=== PATIENT | male | born 1950 | race Caucasian/White ===

== ENCOUNTER 2018-02-05 07:20 | Emergency (ER) | payer BC ==
[2018-02-05] MEDS ORDERED: DIPHENHYDRAMINE HCL 50 MG/ML VIAL IVP ONE (07:35)
--- NOTE | 2018-02-05 07:41 | Emergency Department Record ---
History of Present Illness - General Chief Complaint: Dizziness Stated Complaint: DIZZY/NAUSEA Time Seen by Provider: 02/05/18 07:34 Source: Patient, Family () Mode of Arrival: Ambulatory Limitations: No limitations - History of Present Illness Initial Comments: Pt with complaint of dizziness with turning head or looking down. Associated with nausea. Better is holds head still. No CP, JULIO CÉSAR, no weakness to arms or legs, no change in speech or vision. No recent change in meds, no recent illness or OTC meds. When up at night to go to the bathroom he had difficulty with dizziness. Had simialr last week that resolved overnight without treatment. No TRONCOSO or other complaints. No prior medical evaluation for this issue. MD Complaint: Dizziness Onset/Timin -: Days(s) Description: Off-balance, "Room spinning", Sense of movement History of Same: Yes History of Trauma: No - Mikhail Coma Scale Eye Response: (4) Open spontaneously Motor Response: (6) Obeys commands Verbal Response: (5) Oriented Mikhail Total: 15 - Related Data Previous Rx's Medication Instructions Recorded Meclizine HCl [Antivert] 25 mg PO Q8H 5 Days #30 tablet 02/05/18 Allergies Allergy/AdvReac Type Severity Reaction Status Date / Time No Known Drug Allergies Allergy Verified 02/05/18 07:28 Travel Screening - Travel/Exposure Within Last 30 Days Have you traveled within the last 30 days?: No - Travel/Exposure Within Last Year Have you traveled outside the [place] in the last year?: No - Additonal Travel Details Have you been exposed to anyone with a communicable illness?: No - Travel Symptoms Symptom Screening: None Review of Systems Constitutional: Denies: Chills, Fever, Weakness Eyes: Denies: Eye discharge, Photophobia ENT: Denies: Congestion, Ear pain, Hearing loss Respiratory: Denies: Cough, Dyspnea Cardiovascular: Denies: Arrhythmia, Chest pain, Palpitations, Syncope Endocrine: Denies: Fatigue, Polydipsia, Polyuria Gastrointestinal: Reports: Nausea. Denies: Abdominal pain, Vomiting Musculoskeletal: Denies: Back pain Skin: Denies: Bruising, Rash Neurological: Reports: Vertigo. Denies: Abnormal gait, Confusion, Headache, Numbness, Tingling, Weakness Psychiatric: Denies: Anxiety, Suicidal thoughts Hematological/Lymphatic: Denies: Anemia Past Medical History - SOCIAL HISTORY Smoking Status: Never smoker Alcohol Use: None Drug Use: None - RESPIRATORY Hx Respiratory Disorders: No - CARDIOVASCULAR Hx Cardio Disorders: Yes Hx Hypertension: Yes Comment:: hypercholesteremia - NEURO Hx Neuro Disorders: No - GI Hx GI Disorders: No - Hx Genitourinary Disorders: No - ENDOCRINE Hx Endocrine Disorders: No - MUSCULOSKELETAL Hx Musculoskeletal Disorders: No - PSYCH Hx Psych Problems: No - HEMATOLOGY/ONCOLOGY Hx Hematology/Oncology Disorders: No Family Medical History Any Significant Family History?: Yes Hx Heart Disease: Grandparents Physical Exam - General General Appearance: Alert, Oriented x3, Cooperative, No acute distress - Head Head exam: Normal inspection - Eye Eye exam: Normal appearance, PERRL, EOMI. negative: Nystagmus - ENT ENT exam: Normal exam, Mucous membranes moist, Normal external ear exam, TM's normal bilaterally Nasal Exam: Normal inspection Teeth exam: Normal inspection Throat exam: Normal inspection - Neck Neck exam: Normal inspection, Full ROM. negative: Tenderness - Respiratory Respiratory exam: Normal lung sounds bilaterally. negative: Respiratory distress, Wheezes - Cardiovascular Cardiovascular Exam: Regular rate, Normal rhythm, Normal heart sounds. negative : Diastolic murmur, Systolic murmur, Tachycardia Peripheral Pulses: 2+: Radial (R), Radial (L) - GI/Abdominal GI/Abdominal exam: Soft, Normal bowel sounds. negative: Tenderness - Extremities Extremities exam: Normal inspection, Full ROM. negative: Calf tenderness - Back Back exam: Reports: Normal inspection. Denies: Vertebral tenderness - Neurological Neurological exam: Alert, CN II-XII intact, Normal gait, Oriented X3, Other ( Reproduce dizziness with lateral gaze, no nystagmus. Better is still. ). negative: Motor sensory deficit - Psychiatric Psychiatric exam: Normal affect, Normal mood - Skin Skin exam: Normal color. negative: Rash Course Vital Signs 02/05/18 07:21 Temperature 97.4 F L Pulse Rate 67 Respiratory 18 Rate Blood Pressure 140/97 - Reevaluation(s) Reevaluation #1: 02/05/18 07:46 Exam with at bedside. EKG normal. Reevaluation #2: 02/05/18 08:05 EKG, Labs, XRay normal. Monitoring for response to meds. Reevaluation #3: 02/05/18 08:55 Improved with less dizziness. Able to open eyes and look side to side. Still dizzy with looking down. Comfortable with home. Second episode of this and will refer to ENT. Procedures - EKG Initial Date: 02/05/18 Time: 07:25 EKG: Normal EKG Medical Decision Making - Data Complexity MDM Data: Labs Ordered and/or Reviewed, X-Ray Ordered and/or Reviewed, EKG Ordered and/or Reviewed - Lab Data Result diagrams: 02/05/18 07:28 02/05/18 07:28 - EKG Data -: EKG Interpreted by Me EKG: Normal EKG - Radiology Data Radiology results: Report reviewed -: Radiology Exam Interpreted by Myself No acute process Disposition Disposition: Discharge Clinical Impression: Dizziness, Benign positional vertigo Disposition: Home, Self-Care Condition: (1) Good Instructions: Vertigo (ED), Benign Paroxysmal Positional Vertigo (ED) Additional Instructions: DO not DRIVE UNTIL SYMPTOMS RESOLVE. Follow up with ENT referral. Take Antivert as instructed. Return as needed. Prescriptions: Meclizine HCl [Antivert] 25 mg PO Q8H 5 Days #30 tablet Referrals: [facility] [] - Forms: Patient Portal Access Time of Disposition: 08:58 Quality - Quality Measures Quality Measures: N/A - Blood Pressure Screening Does Patient Have Any of the Following: No Blood Pressure Classification: Hypertensive Reading Systolic Measurement: 140 Diastolic Measurement: 97 Screening for High Blood Pressure: Patient Exclusion, Hx of HTN [[id number]]
[2018-02-05 07:43] LABS: BASO % 0.5 % (0-6); EOS % 3.4 % (0-6); GRAN % 53.6 % (47-80); HEMATOCRIT 47.2 % (42.0-52.0); HEMOGLOBIN 16.3 gm/dl (14.0-18.0); LYMPH % 32.4 % (16-45); MEAN CELL VOLUME 85.4 fl (81-97); MEAN CORPUSCULAR HEMOGLOBIN 29.5 pg (27-33); MEAN CORPUSCULAR HGB CONC 34.5 g/dl (32-36); MEAN PLATELET VOLUME 9.8 fl (7.4-10.4); MONO % 10.1 % (0-9); PLATELET COUNT 188 K/uL (130-400); RED BLOOD COUNT 5.53 M/uL (4.40-5.70); RED CELL DISTRIBUTION WIDTH 12.7 % (11.5-14.5); WHITE BLOOD COUNT W/O DIFF 6.2 K/uL (4.2-12.2)
[2018-02-05] MEDS ORDERED: 0.9 % SODIUM CHLORIDE 1000ML 500 ML IV ONE (07:47)
[2018-02-05 07:56] LABS: BLOOD UREA NITROGEN 18 mg/dL (8-23); CREATININE 1.1 mg/dL (0.7-1.2); EST GLOMERULAR FILTRATION RATE > 60 mL/min
[2018-02-05 07:58] LABS: GLUCOSE,RANDOM 104 mg/dL (74-109)
--- NOTE | 2018-02-06 07:28 | RADIOLOGY REPORT ---
DATE: 02/05/2018. EXAM: CHEST, TWO VIEW. HISTORY: DIZZINESS. TECHNIQUE: Two views of the chest. COMPARISON: None. FINDINGS: The cardiomediastinal silhouette is unremarkable. The lungs and pleural spaces are clear. IMPRESSION: NO ACUTE CARDIOPULMONARY ABNORMALITY. JOB NUMBER: [id number] MTDD
== END 2018-02-05 09:23 | disposition home or self-care (01) ==
LOC: ER 07:20
DX: H81.10 Benign paroxysmal vertigo, unspecified ear (principal); R11.0 Nausea; I10 Essential (primary) hypertension
CPT/HCPCS: 71046; 80048; 84484; 85025; 93005; 93010; 96374; 99284; J1200; J7030